=== PATIENT | male | born 1985 | race African-American/Black ===

== ENCOUNTER 2016-10-16 13:54 | Emergency (ER) | payer OTHER, MEDICAID ==
[~2016-10-16] VITALS: Ht 175.3 cm; Wt 54.4 kg
[2016-10-16 15:57] VITALS: BP 154/96
== END 2016-10-16 16:28 | disposition home or self-care (01) ==
LOC: ER 13:54
DX: J45.909 Unspecified asthma, uncomplicated (principal); Z76.0 Encounter for issue of repeat prescription

== ENCOUNTER 2016-11-04 01:40 | Emergency (ER) | payer OTHER, MEDICAID ==
[~2016-11-04] VITALS: Ht 175.3 cm; Wt 54.4 kg
[2016-11-04 02:45] VITALS: BP 138/80
[2016-11-04] MEDS ORDERED: methylPREDNISolone SOD SUCC 125 MG/2 ML VL IM ONE (02:45)
[2016-11-04] MEDS ORDERED: KETOROLAC TROMETH 60MG/2ML VIAL IM ONE (02:45)
== END 2016-11-04 03:19 | disposition home or self-care (01) ==
LOC: ER 01:40
DX: G89.29 Other chronic pain (principal); M54.5 Low back pain; J45.909 Unspecified asthma, uncomplicated
CPT/HCPCS: 96372; 99284; J1885; J2930